=== PATIENT | male | born 1965 | race Caucasian/White ===

== ENCOUNTER → 2019-09-26 | Outpatient (CLI) | payer OTHER ==
--- NOTE | 2019-09-26 10:02 | RAD ---
Examination: Frontal view of the bilateral knees and 2 views of the right knee HISTORY: History of right knee pain COMPARISON: None available FINDINGS: Mild joint space loss identified in the medial, lateral, patellofemoral compartments. Small knee joint effusion on the right. IMPRESSION: Mild tricompartmental degenerative changes. Small right knee joint effusion. Electronically signed by: Elroy Webb MD (09/26/2019 9:59 AM) [id number]
== END | disposition home or self-care (01) ==
LOC: DXRAD 09:14
PROVIDERS: ATTEND Orthopaedic Surgery Sports Medicine
DX: M17.11 Unilateral primary osteoarthritis, right knee (principal); M25.461 Effusion, right knee
CPT/HCPCS: 73562; 73565